=== PATIENT | female | born 1970 | race Caucasian/White ===

== ENCOUNTER → 2021-01-23 | Outpatient (CLI) | payer OTHER ==
[~2021-01-23] VITALS: Ht 157.5 cm; Wt 85.2 kg
[~2021-01-23] MED LIST: ALDACTONE50 MG PO; AMBIEN 5MG TABLE5 MG PO; BUSPAR10 MG PO; ENULOSE10 GM/15 M PO; LASIX 20MG TABL20 MG PO; LASIX 40MG TABL40 MG PO; PROTONIX 40MG T40 MG PO; SYNTHROID 0.10.15 MG PO; SYNTHROID0.137 MG PO; XIFAXAN550 MG PO; ZYRTEC ALLERGY10 MG PO
[2021-01-23 11:58] VITALS: BP 136/72; PULSE 85
[2021-01-23 13:05] VITALS: BP 116/69; PULSE 80
== END ==
LOC: COL.RAD 11:32
DX: K70.31 Alcoholic cirrhosis of liver with ascites (principal)
CPT/HCPCS: 19804

== ENCOUNTER 2021-01-31 08:53 | Outpatient (RCR) | payer OTHER ==
[~2021-01-31] VITALS: Ht 157.5 cm; Wt 91.0 kg
[~2021-01-31 08:53] MED LIST changes: -AMBIEN 5MG TABLE5 MG PO; -LASIX 20MG TABL20 MG PO
[2021-01-31 10:35] VITALS: BP 114/66; PULSE 83
[2021-01-31 13:22] VITALS: BP 104/31; PULSE 77
== END 2021-01-31 16:16 | disposition home or self-care (01) ==
LOC: COL.RAD 08:53 → EDSTATUS 09:45 → COL.RAD 16:16
DX: K70.31 Alcoholic cirrhosis of liver with ascites (principal)
CPT/HCPCS: P9047

== ENCOUNTER 2021-02-07 14:40 | Emergency (ER) | payer OTHER ==
[~2021-02-07] VITALS: Ht 157.5 cm; Wt 88.6 kg
[2021-02-07 14:52] VITALS: TEMP 98.1
[2021-02-07 15:16] LABS: COLLECTION METHOD CLEAN CATCH
[2021-02-07 15:22] LABS: MUCOUS Present /lpf; PH 5 (5-8); URINE APPEARANCE Clear; URINE BACTERIA Rare /hpf; URINE BILIRUBIN Negative (NEGATIVE); URINE BLOOD Negative (NEGATIVE); URINE COLOR Amber; URINE GLUCOSE Negative (NEGATIVE); URINE KETONE Negative (NEGATIVE); URINE LEUKOCYTE ESTERASE Negative (NEGATIVE); URINE NITRATE Negative (NEGATIVE); URINE PROTEIN(semi-quant) Negative (NEGATIVE); URINE RBC None Seen /hpf; URINE UROBILINOGEN >=4.0 mg/dL (NEGATIVE)
[2021-02-07 15:33] LABS: BASO # 0.1 (0.0-0.2); BASO % 0.7 % (0.0-2.0); EOS # 0.2 (0.0-0.7); EOS % 2.8 % (0-4.0); GRAN % 73.1 % (42.2-75.2); HEMOGLOBIN 11.4 g/dl (12.5-16.0); LYMPH # 0.6 (1.2-3.4); LYMPH % 8.9 % (20.0-51.0); MEAN CELL VOLUME 102 fl (80.0-100.0); MEAN CORPUSCULAR HEMOGLOBIN 35 pg (27.0-31.0); MEAN CORPUSCULAR HGB CONC 34 g/dl (33.0-37.0); MEAN PLATELET VOLUME 12.2 fl (7.4-10.4); MONO # 0.9 (0.1-0.6); MONO % 13.2 % (1.7-9.3); PLATELET COUNT 63 K/mm3 (130-400); RED BLOOD COUNT 3.26 M/mm3 (4.10-5.30)
[2021-02-07 15:34] LABS: HEMATOCRIT 33.3 % (37.0-47.0)
[2021-02-07 15:44] LABS: ALBUMIN 2.5 gm/dL (3.5-5.0); BILIRUBIN,TOTAL 2.7 mg/dL (0.0-1.0); CALCIUM 7.8 mg/dL (8.4-10.2); CREATININE, serum 1.24 (0.52-1.25); POTASSIUM 4.2 mmol/L (3.4-5.0); TOTAL PROTEIN 5.6 gm/dL (6.4-8.2)
[2021-02-07 16:20] VITALS: BP 113/75; PULSE 82
== END 2021-02-07 16:20 | disposition home or self-care (01) ==
LOC: COL.ER 14:40
PROVIDERS: Physician Assistant
DX: K72.90 Hepatic failure, unspecified without coma (principal); E87.1 Hypo-osmolality and hyponatremia; D69.6 Thrombocytopenia, unspecified; Z87.891 Personal history of nicotine dependence

== ENCOUNTER → 2021-02-13 | Outpatient (CLI) | payer OTHER ==
[~2021-02-13] VITALS: Ht 157.5 cm; Wt 100.3 kg
[~2021-02-13] MED LIST changes: +AMBIEN 5MG TABLE5 MG PO; +LASIX 20MG TABL20 MG PO
[2021-02-13 14:30] VITALS: BP 107/71; PULSE 80
[2021-02-13 15:30] VITALS: BP 117/77; PULSE 77
== END ==
LOC: COL.RAD 11:43
DX: K70.31 Alcoholic cirrhosis of liver with ascites (principal)
CPT/HCPCS: P9047

== ENCOUNTER → 2021-02-20 | Outpatient (CLI) | payer OTHER ==
[~2021-02-20] VITALS: Ht 157.5 cm; Wt 96.7 kg
[2021-02-20 11:54] VITALS: BP 120/88; PULSE 93
[2021-02-20 14:17] VITALS: BP 109/62; PULSE 84
--- NOTE | 2021-02-20 14:35 | NUR ---
CLARIFIED WITH [facility] PHARMACIST REGARDING RATE. OK TO RUN AT 2MG/MIN.
--- NOTE | 2021-02-20 16:15 | NUR ---
ALBUMIN COMPLETED. IV DC'D. PT WHEELED OUT FOR DISCHARGE AND MET BY .
== END ==
LOC: COL.RAD 11:27
DX: K70.31 Alcoholic cirrhosis of liver with ascites (principal)
CPT/HCPCS: P9047

== ENCOUNTER 2021-02-27 11:24 | Outpatient (CLI) | payer OTHER ==
[~2021-02-27 11:24] MED LIST changes: -AMBIEN 5MG TABLE5 MG PO; -LASIX 20MG TABL20 MG PO
[2021-02-27 13:42] VITALS: BP 108/53; PULSE 80
--- NOTE | 2021-02-27 14:45 | NUR ---
INT DC'd with catheter intact. Pt assisted out by wheelchair to 's car.
== END 2021-02-27 16:59 | disposition home or self-care (01) ==
LOC: COL.RAD 11:24
DX: K70.31 Alcoholic cirrhosis of liver with ascites (principal)
CPT/HCPCS: P9047

== ENCOUNTER 2021-03-06 11:38 | Outpatient (CLI) | payer OTHER ==
[~2021-03-06] VITALS: Ht 157.5 cm; Wt 93.7 kg
[2021-03-06 11:58] VITALS: BP 122/69; PULSE 85
[2021-03-06 14:28] LABS: PERITONEAL -POLYMORPHONUCLEAR 21.6 % (0-25); PERITONEAL FLUID RBC 1000 /mm3 (0-0)
[2021-03-06 14:46] VITALS: BP 113/76; PULSE 77
[2021-03-06 15:00] VITALS: BP 134/82; PULSE 71; TEMP 97.9
== END 2021-03-06 16:06 | disposition home or self-care (01) ==
LOC: COL.RAD 11:38
PROVIDERS: Student in an Organized Health Care Education/Training Program
DX: K70.31 Alcoholic cirrhosis of liver with ascites (principal)
CPT/HCPCS: P9047

== ENCOUNTER 2021-03-13 11:34 | Outpatient (CLI) | payer OTHER ==
[~2021-03-13] VITALS: Ht 157.5 cm; Wt 86.8 kg
[2021-03-13 12:25] VITALS: BP 104/68; PULSE 80; TEMP 98.5
--- NOTE | 2021-03-13 14:02 | NUR ---
Pt returned from procedure.
[2021-03-13 14:41] VITALS: BP 107/72; PULSE 79; TEMP 98.7
[2021-03-13 14:43] VITALS: BP 107/72; PULSE 79
== END 2021-03-13 16:31 ==
LOC: COL.RAD 11:34
DX: K70.31 Alcoholic cirrhosis of liver with ascites (principal)
CPT/HCPCS: P9047

== ENCOUNTER 2021-03-20 11:32 | Outpatient (CLI) | payer OTHER ==
[~2021-03-20] VITALS: Ht 157.5 cm; Wt 85.5 kg
[2021-03-20 11:52] VITALS: BP 128/67; PULSE 78; TEMP 98.3
[2021-03-20 13:30] VITALS: BP 107/59; PULSE 81
[2021-03-20 14:00] VITALS: BP 107/59; PULSE 81; TEMP 98.3
[2021-03-20 14:08] LABS: PERITONEAL -POLYMORPHONUCLEAR 24.6 % (0-25); PERITONEAL FLUID RBC 4000 /mm3 (0-0)
== END 2021-03-20 15:30 | disposition home or self-care (01) ==
LOC: COL.RAD 11:32
PROVIDERS: Student in an Organized Health Care Education/Training Program
DX: K70.31 Alcoholic cirrhosis of liver with ascites (principal)
CPT/HCPCS: P9047

== ENCOUNTER 2021-03-27 08:31 | Outpatient (CLI) | payer OTHER ==
[~2021-03-27] VITALS: Ht 157.5 cm; Wt 88.3 kg
[2021-03-27 08:49] VITALS: BP 114/72; PULSE 82; TEMP 97.9
[2021-03-27 10:30] VITALS: BP 101/52; PULSE 102; TEMP 97.9
[2021-03-27 10:41] LABS: PERITONEAL -POLYMORPHONUCLEAR 24.7 % (0-25); PERITONEAL FLUID RBC 1000 /mm3 (0-0)
== END 2021-03-27 11:45 | disposition home or self-care (01) ==
LOC: COL.RAD 08:31
PROVIDERS: Student in an Organized Health Care Education/Training Program
DX: K70.31 Alcoholic cirrhosis of liver with ascites (principal)
CPT/HCPCS: P9047

== ENCOUNTER 2021-04-03 11:32 | Outpatient (CLI) | payer OTHER ==
[2021-04-03 13:58] LABS: PERITONEAL FLUID RBC 1000 /mm3 (0-0)
[2021-04-03 15:26] VITALS: BP 106/60; PULSE 85
== END 2021-04-03 16:28 ==
LOC: COL.RAD 11:32
PROVIDERS: Student in an Organized Health Care Education/Training Program
DX: K70.31 Alcoholic cirrhosis of liver with ascites (principal)
CPT/HCPCS: P9047

== ENCOUNTER 2021-04-17 11:15 | Outpatient (CLI) | payer OTHER ==
[~2021-04-17] VITALS: Ht 157.5 cm; Wt 88.2 kg
[2021-04-17 11:40] VITALS: BP 111/60; PULSE 52; TEMP 97.9
[2021-04-17 14:09] VITALS: BP 107/70; PULSE 77
[2021-04-17 14:26] LABS: PERITONEAL -POLYMORPHONUCLEAR 23.5 % (0-25); PERITONEAL FLUID RBC 1000 /mm3 (0-0)
--- NOTE | 2021-04-17 16:11 | NUR ---
Pt ambulates out from dept with steady gait to meet at entrance. She refuses assistance out with wheelchair. INT was DC'd with catheter intact prior to discharge.
== END 2021-04-17 16:11 | disposition home or self-care (01) ==
LOC: COL.RAD 11:15
PROVIDERS: Student in an Organized Health Care Education/Training Program
DX: K70.31 Alcoholic cirrhosis of liver with ascites (principal)
CPT/HCPCS: P9047

== ENCOUNTER 2021-04-24 12:28 | Outpatient (CLI) | payer OTHER ==
[~2021-04-24] VITALS: Ht 157.5 cm; Wt 85.9 kg
[2021-04-24 12:42] VITALS: BP 121/74; PULSE 88; TEMP 98.5
[2021-04-24 14:02] VITALS: BP 111/72; PULSE 77
--- NOTE | 2021-04-24 14:20 | NUR ---
Message left with GI office per pt's request. She states she would like to receive albumin infusion today, although per current orders infusion not needed due to amount of fluid removed during paracentesis procedure.
[2021-04-24 14:41] LABS: PERITONEAL -POLYMORPHONUCLEAR 19.3 % (0-25); PERITONEAL FLUID RBC 5000 /mm3 (0-0)
--- NOTE | 2021-04-24 16:05 | NUR ---
INT DC'd with catheter intact. Pt states she would like to ambulate out and refuses wheelchair ride out. She tolerated infusion without issue.
== END 2021-04-24 16:33 | disposition home or self-care (01) ==
LOC: COL.RAD 12:28
PROVIDERS: Student in an Organized Health Care Education/Training Program
DX: K70.31 Alcoholic cirrhosis of liver with ascites (principal)
CPT/HCPCS: P9047

== ENCOUNTER 2021-05-01 11:28 | Outpatient (CLI) | payer OTHER ==
[~2021-05-01] VITALS: Ht 157.5 cm; Wt 88.5 kg
[2021-05-01 11:43] VITALS: BP 119/77; PULSE 80; TEMP 98.3
[2021-05-01 14:11] LABS: PERITONEAL -POLYMORPHONUCLEAR 19.3 % (0-25); PERITONEAL FLUID RBC 2000 /mm3 (0-0)
[2021-05-01 14:16] VITALS: BP 103/47; PULSE 78
== END 2021-05-01 15:43 ==
LOC: COL.RAD 11:28
PROVIDERS: Student in an Organized Health Care Education/Training Program
DX: K70.31 Alcoholic cirrhosis of liver with ascites (principal)
CPT/HCPCS: P9047

== ENCOUNTER 2021-05-08 11:45 | Outpatient (CLI) | payer OTHER ==
[~2021-05-08] VITALS: Ht 157.5 cm; Wt 89.4 kg
[2021-05-08 12:00] VITALS: BP 97/56; PULSE 80; TEMP 98.1
[2021-05-08 13:50] VITALS: BP 117/76; PULSE 69; TEMP 98.5
[2021-05-08 14:23] LABS: PERITONEAL -POLYMORPHONUCLEAR 27.5 % (0-25); PERITONEAL FLUID RBC 2000 /mm3 (0-0)
== END 2021-05-08 14:49 ==
LOC: COL.RAD 11:45
PROVIDERS: Student in an Organized Health Care Education/Training Program
DX: K70.31 Alcoholic cirrhosis of liver with ascites (principal)
CPT/HCPCS: P9047

== ENCOUNTER 2021-05-15 08:27 | Outpatient (CLI) | payer OTHER ==
[2021-05-15 11:13] LABS: PERITONEAL -POLYMORPHONUCLEAR 26.2 % (0-25)
[2021-05-15 11:29] LABS: PERITONEAL FLUID RBC 7000 /mm3 (0-0)
[2021-05-15 12:35] VITALS: BP 105/68; PULSE 88
[2021-05-15 14:57] LABS: CREATININE, serum 1.32 mg/dL (0.57-1.11)
== END 2021-05-15 14:31 | disposition home or self-care (01) ==
LOC: COL.RAD 08:27
PROVIDERS: Student in an Organized Health Care Education/Training Program
DX: K70.31 Alcoholic cirrhosis of liver with ascites (principal)
CPT/HCPCS: P9047

== ENCOUNTER 2021-05-29 08:31 | Outpatient (CLI) | payer OTHER ==
[~2021-05-29] VITALS: Ht 157.5 cm; Wt 95.2 kg
[2021-05-29 08:48] VITALS: BP 127/88; PULSE 89; TEMP 97.9
[2021-05-29 10:48] LABS: PERITONEAL -POLYMORPHONUCLEAR 18.3 % (0-25)
[2021-05-29 11:20] VITALS: BP 113/73; PULSE 87; TEMP 97.9
== END 2021-05-29 17:06 ==
LOC: COL.RAD 08:31 → EUO 08:31 → COL.RAD 09:00
PROVIDERS: Student in an Organized Health Care Education/Training Program
DX: K70.31 Alcoholic cirrhosis of liver with ascites (principal)
CPT/HCPCS: P9047

== ENCOUNTER 2021-06-05 08:34 | Outpatient (CLI) | payer OTHER ==
[~2021-06-05] VITALS: Ht 157.5 cm; Wt 87.3 kg
[2021-06-05 09:04] VITALS: BP 128/82; PULSE 84; TEMP 97.5
[2021-06-05 11:20] VITALS: BP 127/79; PULSE 85; TEMP 98.2
== END 2021-06-05 13:45 | disposition home health service (06) ==
LOC: COL.RAD 08:34
PROVIDERS: Student in an Organized Health Care Education/Training Program
DX: K70.31 Alcoholic cirrhosis of liver with ascites (principal)
CPT/HCPCS: P9047

== ENCOUNTER 2021-06-12 08:28 | Outpatient (CLI) | payer OTHER ==
[~2021-06-12] VITALS: Ht 157.5 cm; Wt 95.8 kg
[2021-06-12 09:05] VITALS: BP 141/74; PULSE 87; TEMP 97.8
[2021-06-12 11:12] VITALS: BP 114/65; PULSE 82; TEMP 98.2
[2021-06-12 11:35] LABS: PERITONEAL -POLYMORPHONUCLEAR 15.9 % (0-25)
== END 2021-06-12 13:40 ==
LOC: COL.RAD 08:28
PROVIDERS: Student in an Organized Health Care Education/Training Program
DX: R18.8 Other ascites (principal)
CPT/HCPCS: P9047

== ENCOUNTER 2021-06-19 08:27 | Outpatient (CLI) | payer OTHER ==
[~2021-06-19] VITALS: Ht 157.5 cm; Wt 94.8 kg
[2021-06-19 08:50] VITALS: BP 130/83; PULSE 81; TEMP 98.4
[2021-06-19] MEDS ORDERED: AMBIEN 5MG TABLE5 MG PO (08:56)
[2021-06-19 11:10] LABS: PERITONEAL -POLYMORPHONUCLEAR 9.2 % (0-25)
--- NOTE | 2021-06-19 13:45 | NUR ---
INT DC'd with catheter intact. Pt assisted out to 's car by wheelchair.
== END 2021-06-19 16:35 | disposition home or self-care (01) ==
LOC: COL.RAD 08:27
PROVIDERS: Student in an Organized Health Care Education/Training Program
DX: K70.31 Alcoholic cirrhosis of liver with ascites (principal)
CPT/HCPCS: P9047

== ENCOUNTER 2021-06-26 08:36 | Outpatient (CLI) | payer OTHER ==
[~2021-06-26] VITALS: Ht 157.5 cm; Wt 91.8 kg
[~2021-06-26 08:36] MED LIST changes: +AMBIEN 5MG TABLE5 MG PO
[2021-06-26] MEDS ORDERED: ALDACTONE50 MG PO (08:51)
[2021-06-26] MEDS ORDERED: LASIX 20MG TABL20 MG PO (08:52)
[2021-06-26 08:54] VITALS: BP 113/57; PULSE 84
[2021-06-26 10:56] LABS: PERITONEAL -POLYMORPHONUCLEAR 15.1 % (0-25)
== END 2021-06-26 13:25 | disposition home or self-care (01) ==
LOC: COL.RAD 08:36
PROVIDERS: Student in an Organized Health Care Education/Training Program
DX: K70.31 Alcoholic cirrhosis of liver with ascites (principal)
CPT/HCPCS: P9047

== ENCOUNTER 2021-07-03 08:29 | Outpatient (CLI) | payer OTHER ==
[~2021-07-03] VITALS: Ht 157.5 cm; Wt 90.4 kg
[~2021-07-03 08:29] MED LIST changes: +LASIX 20MG TABL20 MG PO
[2021-07-03 08:51] VITALS: BP 112/61; PULSE 72; TEMP 98
[2021-07-03 10:44] LABS: PERITONEAL -POLYMORPHONUCLEAR 11.2 % (0-25)
--- NOTE | 2021-07-03 10:45 | NUR ---
Patient arrived from procedure.
[2021-07-03 11:00] VITALS: BP 102/68; PULSE 71; TEMP 98
[2021-07-03 22:31] LABS: Fluid Type protein (())
== END 2021-07-03 14:22 ==
LOC: COL.RAD 08:29
PROVIDERS: Student in an Organized Health Care Education/Training Program
DX: K70.31 Alcoholic cirrhosis of liver with ascites (principal)
CPT/HCPCS: P9047

== ENCOUNTER 2021-07-09 08:42 | Outpatient (CLI) | payer OTHER ==
[~2021-07-09] VITALS: Ht 157.5 cm; Wt 86.9 kg
[2021-07-09 09:12] VITALS: BP 117/75; PULSE 77; TEMP 97.9
[2021-07-09 10:51] LABS: PERITONEAL -POLYMORPHONUCLEAR 8.9 % (0-25)
[2021-07-09 11:12] VITALS: BP 116/74; PULSE 77; TEMP 98.6
--- NOTE | 2021-07-09 12:10 | NUR ---
Report to Gideon Brewster.
== END 2021-07-09 15:00 ==
LOC: COL.RAD 08:42
PROVIDERS: Student in an Organized Health Care Education/Training Program
DX: K70.31 Alcoholic cirrhosis of liver with ascites (principal)
CPT/HCPCS: P9047

== ENCOUNTER → 2021-07-17 | Outpatient (CLI) | payer OTHER ==
[~2021-07-17] VITALS: Ht 157.5 cm; Wt 89.7 kg
[2021-07-17 08:50] VITALS: BP 120/73; PULSE 77; TEMP 97.8
[2021-07-17 10:12] VITALS: BP 105/65; PULSE 72
[2021-07-17 10:33] LABS: PERITONEAL -POLYMORPHONUCLEAR 16.2 % (0-25)
[2021-07-18 11:27] LABS: Fluid Type Peritoneal
== END ==
LOC: COL.RAD 08:36
PROVIDERS: Student in an Organized Health Care Education/Training Program
DX: K70.31 Alcoholic cirrhosis of liver with ascites (principal)
CPT/HCPCS: P9047

== ENCOUNTER 2021-07-24 08:20 | Outpatient (CLI) | payer OTHER ==
[~2021-07-24] VITALS: Ht 157.5 cm; Wt 88.9 kg
[2021-07-24 08:36] VITALS: BP 122/79; PULSE 85; TEMP 97.9
[2021-07-24 10:37] VITALS: BP 115/73; PULSE 74
== END 2021-07-24 13:19 ==
LOC: COL.RAD 08:20
DX: K70.31 Alcoholic cirrhosis of liver with ascites (principal)
CPT/HCPCS: P9047

== ENCOUNTER 2021-07-31 08:47 | Outpatient (CLI) | payer OTHER ==
[~2021-07-31] VITALS: Ht 157.5 cm; Wt 89.6 kg
[2021-07-31 09:03] VITALS: BP 124/71; PULSE 82; TEMP 98.2
[2021-07-31 11:18] VITALS: BP 109/70; PULSE 82
== END 2021-07-31 14:45 | disposition home or self-care (01) ==
LOC: COL.RAD 08:47
DX: K70.31 Alcoholic cirrhosis of liver with ascites (principal)
CPT/HCPCS: P9047

== ENCOUNTER 2021-08-07 08:45 | Outpatient (CLI) | payer OTHER ==
[~2021-08-07] VITALS: Ht 157.5 cm; Wt 86.4 kg
[2021-08-07 08:58] VITALS: BP 123/76; PULSE 81; TEMP 97.9
[2021-08-07 10:29] VITALS: BP 107/70; PULSE 79; TEMP 97.7
== END 2021-08-07 13:10 | disposition home or self-care (01) ==
LOC: COL.RAD 08:45
DX: K70.31 Alcoholic cirrhosis of liver with ascites (principal)
CPT/HCPCS: P9047

== ENCOUNTER 2021-08-14 08:34 | Outpatient (CLI) | payer OTHER ==
[~2021-08-14] VITALS: Ht 157.5 cm; Wt 85.3 kg
[2021-08-14 09:02] VITALS: BP 117/73; PULSE 77; TEMP 98.3
== END 2021-08-14 17:26 | disposition home or self-care (01) ==
LOC: COL.RAD 08:34
DX: K70.31 Alcoholic cirrhosis of liver with ascites (principal)
CPT/HCPCS: P9047

== ENCOUNTER 2021-08-21 06:20 | Outpatient (CLI) | payer OTHER ==
[~2021-08-21] VITALS: Ht 157.5 cm; Wt 84.7 kg
[2021-08-21 06:38] VITALS: BP 112/78; PULSE 65; TEMP 97.7
[2021-08-21 08:35] VITALS: BP 113/73; PULSE 70
[2021-08-21 09:14] LABS: PERITONEAL -POLYMORPHONUCLEAR 6.3 % (0-25)
--- NOTE | 2021-08-21 11:00 | NUR ---
INT was DC'd with catheter intact. Pt assisted out to 's car by wheelchair.
== END 2021-08-21 11:00 | disposition home or self-care (01) ==
LOC: COL.RAD 06:20
PROVIDERS: Physician Assistant
DX: K70.31 Alcoholic cirrhosis of liver with ascites (principal)
CPT/HCPCS: P9047

== ENCOUNTER 2021-08-28 08:40 | Outpatient (CLI) | payer OTHER ==
[~2021-08-28] VITALS: Ht 157.5 cm; Wt 83.4 kg
[2021-08-28 09:04] VITALS: BP 101/63; PULSE 68; TEMP 97.8
--- NOTE | 2021-08-28 09:45 | NUR ---
pt doesnt have enough fluid to drain. Pt INT removed 2x2 and coban to site. Pt out to front lobby to await ride home. Pt to return on wednesday for para.
== END 2021-09-02 11:55 ==
LOC: COL.RAD 08:40
DX: K70.31 Alcoholic cirrhosis of liver with ascites (principal)

== ENCOUNTER 2021-09-04 08:23 | Outpatient (CLI) | payer OTHER ==
[2021-09-04 08:48] VITALS: BP 116/76; PULSE 77; TEMP 97.9
[2021-09-04 11:26] VITALS: BP 119/76; PULSE 76
== END 2021-09-04 18:32 | disposition home or self-care (01) ==
LOC: COL.RAD 08:23
DX: K70.31 Alcoholic cirrhosis of liver with ascites (principal)
CPT/HCPCS: P9047

== ENCOUNTER 2021-09-11 08:31 | Outpatient (CLI) | payer OTHER ==
[~2021-09-11] VITALS: Ht 157.5 cm; Wt 84.9 kg
[2021-09-11 09:04] VITALS: BP 118/77; PULSE 71; TEMP 97.9
[2021-09-11 10:57] VITALS: BP 118/77; PULSE 66
--- NOTE | 2021-09-11 10:57 | NUR ---
Transferred from Radiology for Albumin. IV to left FA placed in Radiology
[2021-09-11 13:33] VITALS: BP 118/77; PULSE 66; TEMP 97.9
== END 2021-09-11 13:25 | disposition home or self-care (01) ==
LOC: COL.RAD 08:31
DX: K70.31 Alcoholic cirrhosis of liver with ascites (principal)
CPT/HCPCS: P9047

== ENCOUNTER 2021-09-18 08:23 | Outpatient (CLI) | payer OTHER ==
[~2021-09-18] VITALS: Ht 157.5 cm; Wt 83.4 kg
[2021-09-18 08:43] VITALS: BP 115/75; PULSE 76; TEMP 97.7
[2021-09-18 10:25] LABS: PERITONEAL -POLYMORPHONUCLEAR 9.9 % (0-25)
[2021-09-25] MEDS ORDERED: ZOFRAN 4MG T4 MG/TAB PO (10:12)
== END 2021-09-18 12:50 | disposition home or self-care (01) ==
LOC: COL.RAD 08:23
PROVIDERS: Physician Assistant
DX: K70.31 Alcoholic cirrhosis of liver with ascites (principal)
CPT/HCPCS: P9047

== ENCOUNTER 2021-10-02 08:36 | Outpatient (CLI) | payer OTHER ==
[~2021-10-02] VITALS: Ht 157.5 cm; Wt 85.8 kg
[~2021-10-02 08:36] MED LIST changes: +ZOFRAN 4MG T4 MG/TAB PO
[2021-10-02 09:05] VITALS: BP 127/83; PULSE 73; TEMP 97.6
[2021-10-02 11:07] VITALS: BP 118/74; PULSE 80; TEMP 97.4
== END 2021-10-02 15:27 ==
LOC: COL.RAD 08:36
DX: K70.31 Alcoholic cirrhosis of liver with ascites (principal)
CPT/HCPCS: P9047

== ENCOUNTER 2021-10-09 08:25 | Outpatient (CLI) | payer OTHER ==
[~2021-10-09] VITALS: Ht 157.5 cm; Wt 85.7 kg
[2021-10-09 11:00] VITALS: BP 112/72; PULSE 79; TEMP 97.8
== END 2021-10-09 13:58 ==
LOC: COL.RAD 08:25
DX: K70.31 Alcoholic cirrhosis of liver with ascites (principal)
CPT/HCPCS: P9047

== ENCOUNTER 2021-10-16 08:27 | Outpatient (CLI) | payer OTHER ==
[~2021-10-16] VITALS: Ht 157.5 cm; Wt 86.3 kg
[2021-10-16] MEDS ORDERED: MELATONIN5 M1 PO (09:08)
[2021-10-16] MEDS ORDERED: BENADRYL25 M2 PO (09:08)
[2021-10-16 09:12] VITALS: BP 129/78; PULSE 70; TEMP 97.9
[2021-10-16 10:42] LABS: PERITONEAL -POLYMORPHONUCLEAR 8.4 % (0-25)
== END 2021-10-16 15:31 | disposition home or self-care (01) ==
LOC: COL.RAD 08:27
PROVIDERS: Physician Assistant
DX: K70.31 Alcoholic cirrhosis of liver with ascites (principal)
CPT/HCPCS: P9047

== ENCOUNTER 2021-10-17 08:48 | Day surgery (SDC) | payer OTHER ==
[~2021-10-17] VITALS: Ht 157.5 cm; Wt 79.6 kg
[~2021-10-17 08:48] MED LIST changes: +BENADRYL25 M2 PO; +MELATONIN5 M1 PO
[2021-10-17 09:53] VITALS: BP 121/59; PULSE 73; TEMP 97.6
[2021-10-17 11:15] VITALS: BP 125/63; PULSE 77; TEMP 98.1
[2021-10-17 11:30] VITALS: BP 124/70; PULSE 77; TEMP 98.1
[2021-10-17 11:39] VITALS: PULSE 75
== END 2021-10-17 12:54 | disposition home or self-care (01) ==
LOC: SDCO 08:48
DX: K92.0 Hematemesis (principal); K74.60 Unspecified cirrhosis of liver; R18.8 Other ascites; Z98.84 Bariatric surgery status; Z79.899 Other long term (current) drug therapy
CPT/HCPCS: J2704; J7030

== ENCOUNTER 2021-10-23 08:36 | Outpatient (CLI) | payer OTHER ==
[~2021-10-23] VITALS: Ht 157.5 cm; Wt 84.3 kg
[2021-10-23 08:54] VITALS: BP 123/78; PULSE 71; TEMP 98
[2021-10-23 10:21] VITALS: BP 119/76; PULSE 74
--- NOTE | 2021-10-23 12:30 | NUR ---
INT DC'd with catheter intact. Pt assisted out by wheelchair to 's car.
== END 2021-10-23 12:30 | disposition home or self-care (01) ==
LOC: COL.RAD 08:36
DX: R18.8 Other ascites (principal)
CPT/HCPCS: P9047

== ENCOUNTER 2021-10-30 08:33 | Outpatient (CLI) | payer OTHER ==
[~2021-10-30] VITALS: Ht 157.5 cm; Wt 82.6 kg
[2021-10-30 09:00] VITALS: BP 124/78; PULSE 76; TEMP 98
[2021-10-30 10:45] VITALS: BP 115/74; PULSE 77
[2021-10-30 10:48] VITALS: BP 115/70; PULSE 77; TEMP 98.3
== END 2021-10-30 16:09 | disposition home or self-care (01) ==
LOC: COL.RAD 08:33
DX: K70.31 Alcoholic cirrhosis of liver with ascites (principal)
CPT/HCPCS: P9047

== ENCOUNTER 2021-11-06 08:28 | Outpatient (CLI) | payer OTHER ==
[~2021-11-06] VITALS: Ht 157.5 cm; Wt 83.0 kg
[2021-11-06 08:51] VITALS: BP 127/76; PULSE 79; TEMP 97.7
[2021-11-06 10:25] VITALS: BP 120/71; PULSE 78
== END 2021-11-06 12:50 | disposition home or self-care (01) ==
LOC: COL.RAD 08:28
DX: K70.31 Alcoholic cirrhosis of liver with ascites (principal)
CPT/HCPCS: P9047

== ENCOUNTER 2021-11-20 08:25 | Outpatient (CLI) | payer OTHER ==
[~2021-11-20] VITALS: Ht 157.5 cm; Wt 85.2 kg
[2021-11-20 08:52] VITALS: BP 124/77; PULSE 81; TEMP 97.4
[2021-11-20 10:16] VITALS: BP 123/54; PULSE 80; TEMP 98
[2021-11-20 10:43] LABS: PERITONEAL -POLYMORPHONUCLEAR 7.9 % (0-25)
== END 2021-11-20 13:10 ==
LOC: COL.RAD 08:25
PROVIDERS: Student in an Organized Health Care Education/Training Program
DX: K70.31 Alcoholic cirrhosis of liver with ascites (principal)
CPT/HCPCS: P9047

== ENCOUNTER 2021-11-27 08:53 | Outpatient (CLI) | payer OTHER ==
[~2021-11-27] VITALS: Ht 157.5 cm; Wt 85.4 kg
[2021-11-27] MEDS ORDERED: ZOFRAN 4MG T4 MG/TAB PO (09:01)
[2021-11-27] MEDS ORDERED: DESYREL 50MG50 MG PO (09:10)
[2021-11-27 09:17] VITALS: BP 125/73; PULSE 72; TEMP 97.5
[2021-11-27 13:43] VITALS: BP 115/61; PULSE 79
== END 2021-11-27 14:55 ==
LOC: COL.RAD 08:53
DX: K70.31 Alcoholic cirrhosis of liver with ascites (principal)
CPT/HCPCS: P9047

== ENCOUNTER 2021-12-11 08:27 | Outpatient (CLI) | payer OTHER ==
[~2021-12-11] VITALS: Ht 157.5 cm; Wt 83.0 kg
[~2021-12-11 08:27] MED LIST changes: +DESYREL 50MG50 MG PO
[2021-12-11 08:54] VITALS: BP 115/72; PULSE 71; TEMP 97.8
[2021-12-11] MEDS ORDERED: AMBIEN 10MG10 MG PO (08:54)
[2021-12-11 09:24] LABS: BASO % 0.3 % (0.0-2.0); EOS # 0.2 K/mm3 (0.0-0.7); GRAN # 2.5 K/mm3 (1.4-6.5); GRAN % 72.5 % (42.2-75.2); LYMPH # 0.3 K/mm3 (1.2-3.4); MEAN CELL VOLUME 103 fl (80.0-100.0); MEAN CORPUSCULAR HGB CONC 34 g/dl (33.0-37.0); MONO # 0.4 K/mm3 (0.1-0.6); MONO % 12.6 % (1.7-9.3); RED BLOOD COUNT 2.52 M/mm3 (4.10-5.30); REDCELL DISTRIBUTION WIDTH-CV 16.6 % (11.5-14.5)
[2021-12-11 09:26] LABS: INR 1.9 (0.8-3.0); PROTHROMBIN TIME 21.3 SECONDS (9.7-12.8)
[2021-12-11 09:30] LABS: HEMOGLOBIN 8.7 g/dl (12.5-16.0); MEAN CORPUSCULAR HEMOGLOBIN 35 pg (27-31)
[2021-12-11 09:37] LABS: ALBUMIN 3.8 gm/dL (3.5-5.0); CALCIUM 7.9 mg/dL (8.4-10.2); CREATININE, serum 2.21 mg/dL (0.57-1.11); PLATELET COUNT 35 K/mm3 (130-400); POTASSIUM 4.5 mmol/L (3.5-4.5); TOTAL PROTEIN 5.3 gm/dL (6.2-8.1)
[2021-12-11 10:48] VITALS: BP 105/65; PULSE 77
== END 2021-12-11 13:30 | disposition home or self-care (01) ==
LOC: COL.RAD 08:27
PROVIDERS: Student in an Organized Health Care Education/Training Program
DX: K70.31 Alcoholic cirrhosis of liver with ascites (principal)
CPT/HCPCS: P9047

== ENCOUNTER 2021-12-18 08:27 | Outpatient (CLI) | payer OTHER ==
[~2021-12-18] VITALS: Ht 157.5 cm; Wt 84.7 kg
[~2021-12-18 08:27] MED LIST changes: +AMBIEN 10MG10 MG PO
[2021-12-18 08:39] VITALS: BP 122/75; PULSE 76; TEMP 97.6
[2021-12-18 08:52] LABS: BASO % 0.8 % (0.0-2.0); EOS # 0.2 K/mm3 (0.0-0.7); EOS % 5.8 % (0.0-4.0); GRAN # 1.8 K/mm3 (1.4-6.5); GRAN % 67.8 % (42.2-75.2); LYMPH # 0.2 K/mm3 (1.2-3.4); LYMPH % 9.3 % (20.0-51.0); MEAN CELL VOLUME 106 fl (80.0-100.0); MEAN CORPUSCULAR HGB CONC 32 g/dl (33.0-37.0); MONO # 0.4 K/mm3 (0.1-0.6); MONO % 15.9 % (1.7-9.3); RED BLOOD COUNT 2.38 M/mm3 (4.10-5.30); REDCELL DISTRIBUTION WIDTH-CV 16.8 % (11.5-14.5)
[2021-12-18 08:58] LABS: HEMATOCRIT 25.1 % (37.0-47.0); HEMOGLOBIN 8.1 g/dl (12.5-16.0); MEAN CORPUSCULAR HEMOGLOBIN 34 pg (27-31)
[2021-12-18 09:02] LABS: PLATELET COUNT 23 K/mm3 (130-400)
--- NOTE | 2021-12-18 09:04 | NUR ---
PLATELET 23 TODAY AND 35 LAST WEEK. CALLED TO OUSMANE THE NURSE WITH [employer]. INSTRUCTED OUR LAB TO FAX RESULTS TO [facility] AND TO [facility]
[2021-12-18 09:05] LABS: PROTHROMBIN TIME 23.1 SECONDS (9.7-12.8)
[2021-12-18 09:11] LABS: ALBUMIN 3.6 gm/dL (3.5-5.0); BILIRUBIN,TOTAL 4.1 mg/dL (0.2-1.2); CALCIUM 7.6 mg/dL (8.4-10.2); CREATININE, serum 1.87 mg/dL (0.57-1.11); POTASSIUM 4.8 mmol/L (3.5-4.5); TOTAL PROTEIN 5.2 gm/dL (6.2-8.1)
[2021-12-18 10:42] VITALS: BP 108/63; PULSE 76
== END 2021-12-18 16:15 ==
LOC: COL.RAD 08:27
PROVIDERS: Internal Medicine Gastroenterology; Student in an Organized Health Care Education/Training Program
DX: K70.31 Alcoholic cirrhosis of liver with ascites (principal)
CPT/HCPCS: P9047

== ENCOUNTER 2021-12-25 08:27 | Outpatient (CLI) | payer OTHER ==
[~2021-12-25] VITALS: Ht 157.5 cm; Wt 86.2 kg
[2021-12-25 08:48] VITALS: BP 122/71; PULSE 69; TEMP 97.7
[2021-12-25 09:09] LABS: BASO % 1.1 % (0.0-2.0); EOS # 0.2 K/mm3 (0.0-0.7); EOS % 6.8 % (0.0-4.0); GRAN # 1.9 K/mm3 (1.4-6.5); GRAN % 68.5 % (42.2-75.2); LYMPH # 0.2 K/mm3 (1.2-3.4); LYMPH % 8.2 % (20.0-51.0); MEAN CELL VOLUME 103 fl (80.0-100.0); MEAN CORPUSCULAR HGB CONC 34 g/dl (33.0-37.0); MONO # 0.4 K/mm3 (0.1-0.6); RED BLOOD COUNT 2.34 M/mm3 (4.10-5.30); REDCELL DISTRIBUTION WIDTH-CV 16.7 % (11.5-14.5)
[2021-12-25 09:13] LABS: INR 1.9 (0.8-3.0); PROTHROMBIN TIME 21.5 SECONDS (9.7-12.8)
[2021-12-25 09:20] LABS: HEMATOCRIT 24.2 % (37.0-47.0); HEMOGLOBIN 8.1 g/dl (12.5-16.0); MEAN CORPUSCULAR HEMOGLOBIN 35 pg (27-31)
[2021-12-25 09:25] LABS: ALBUMIN 4.3 gm/dL (3.5-5.0); BILIRUBIN,TOTAL 4.4 mg/dL (0.2-1.2); CALCIUM 8.4 mg/dL (8.4-10.2); CREATININE, serum 2.14 mg/dL (0.57-1.11); POTASSIUM 4.7 mmol/L (3.5-4.5); TOTAL PROTEIN 6.1 gm/dL (6.2-8.1)
[2021-12-25 09:27] LABS: PLATELET COUNT 31 K/mm3 (130-400)
[2021-12-25 10:56] VITALS: BP 103/61; PULSE 75
== END 2021-12-25 15:57 ==
LOC: COL.RAD 08:27
PROVIDERS: Student in an Organized Health Care Education/Training Program
DX: K70.31 Alcoholic cirrhosis of liver with ascites (principal)
CPT/HCPCS: P9047

== ENCOUNTER 2022-01-01 08:47 | Outpatient (CLI) | payer OTHER ==
[~2022-01-01] VITALS: Ht 157.5 cm; Wt 80.5 kg
[2022-01-01 09:29] VITALS: BP 147/74; PULSE 79; TEMP 98.1
[2022-01-01 09:53] LABS: BASO % 0.6 % (0.0-2.0); EOS # 0.2 K/mm3 (0.0-0.7); EOS % 6.4 % (0.0-4.0); GRAN # 2.3 K/mm3 (1.4-6.5); GRAN % 70.3 % (42.2-75.2); LYMPH # 0.3 K/mm3 (1.2-3.4); LYMPH % 8.5 % (20.0-51.0); MEAN CELL VOLUME 107 fl (80.0-100.0); MEAN CORPUSCULAR HGB CONC 32 g/dl (33.0-37.0); MONO # 0.5 K/mm3 (0.1-0.6); MONO % 13.9 % (1.7-9.3); RED BLOOD COUNT 2.35 M/mm3 (4.10-5.30); REDCELL DISTRIBUTION WIDTH-CV 16.4 % (11.5-14.5)
[2022-01-01 09:54] LABS: HEMATOCRIT 25.1 % (37.0-47.0); HEMOGLOBIN 8.1 g/dl (12.5-16.0); MEAN CORPUSCULAR HEMOGLOBIN 34 pg (27-31)
[2022-01-01 09:57] LABS: PLATELET COUNT 26 K/mm3 (130-400)
[2022-01-01 10:04] LABS: INR 1.9 (0.8-3.0); PROTHROMBIN TIME 22.3 SECONDS (9.7-12.8)
[2022-01-01 10:06] LABS: ALBUMIN 4.1 gm/dL (3.5-5.0); BILIRUBIN,TOTAL 4.5 mg/dL (0.2-1.2); CALCIUM 8.7 mg/dL (8.4-10.2); CREATININE, serum 1.88 mg/dL (0.57-1.11); POTASSIUM 4.6 mmol/L (3.5-4.5); TOTAL PROTEIN 5.7 gm/dL (6.2-8.1)
[2022-01-01 11:20] VITALS: BP 128/71; PULSE 76; TEMP 98.4
[2022-01-01 11:38] LABS: PERITONEAL -POLYMORPHONUCLEAR 12.3 % (0-25)
--- NOTE | 2022-01-01 15:16 | NUR ---
Pt tolerated albumin administration without complication, IV site discontinued, pressure applied then dressed with gauze and coban. Pt escorted via wheelchair to exit and help into POV with driving.
== END 2022-01-01 14:30 | disposition home or self-care (01) ==
LOC: COL.RAD 08:47
PROVIDERS: Student in an Organized Health Care Education/Training Program
DX: K70.31 Alcoholic cirrhosis of liver with ascites (principal)
CPT/HCPCS: P9047

== ENCOUNTER 2022-01-08 09:00 | Outpatient (CLI) | payer OTHER ==
[2022-01-08 11:30] VITALS: BP 120/73; PULSE 86; TEMP 98.1
[2022-01-08 17:07] LABS: BASO % 0.3 % (0.0-2.0); EOS # 0.1 K/mm3 (0.0-0.7); EOS % 4.9 % (0.0-4.0); GRAN # 2.2 K/mm3 (1.4-6.5); LYMPH # 0.2 K/mm3 (1.2-3.4); MEAN CELL VOLUME 109 fl (80.0-100.0); MEAN CORPUSCULAR HGB CONC 32 g/dl (33.0-37.0); MONO # 0.3 K/mm3 (0.1-0.6); MONO % 10.5 % (1.7-9.3); PLATELET COUNT 50 K/mm3 (130-400); RED BLOOD COUNT 2.34 M/mm3 (4.10-5.30); REDCELL DISTRIBUTION WIDTH-CV 16.8 % (11.5-14.5)
[2022-01-08 17:08] LABS: HEMATOCRIT 25.4 % (37.0-47.0); HEMOGLOBIN 8.2 g/dl (12.5-16.0); MEAN CORPUSCULAR HEMOGLOBIN 35 pg (27-31)
[2022-01-08 17:09] LABS: INR 1.8 (0.8-3.0); PROTHROMBIN TIME 20.7 SECONDS (9.7-12.8)
[2022-01-08 17:22] LABS: ALBUMIN 3.9 gm/dL (3.5-5.0); BILIRUBIN,TOTAL 4.1 mg/dL (0.2-1.2); CALCIUM 8.1 mg/dL (8.4-10.2); CREATININE, serum 1.73 mg/dL (0.57-1.11); POTASSIUM 4.7 mmol/L (3.5-4.5); TOTAL PROTEIN 5.6 gm/dL (6.2-8.1)
== END 2022-01-08 16:40 ==
LOC: COL.RAD 09:00
PROVIDERS: Student in an Organized Health Care Education/Training Program
DX: K70.31 Alcoholic cirrhosis of liver with ascites (principal)
CPT/HCPCS: P9047

== ENCOUNTER 2022-01-15 08:35 | Outpatient (CLI) | payer OTHER ==
[~2022-01-15] VITALS: Ht 157.5 cm; Wt 86.5 kg
[2022-01-15 09:02] VITALS: BP 138/85; PULSE 86; TEMP 98
[2022-01-15 09:06] LABS: BASO % 0.7 % (0.0-2.0); EOS # 0.2 K/mm3 (0.0-0.7); EOS % 4.7 % (0.0-4.0); GRAN # 3.1 K/mm3 (1.4-6.5); GRAN % 76.8 % (42.2-75.2); LYMPH # 0.3 K/mm3 (1.2-3.4); LYMPH % 7.1 % (20.0-51.0); MEAN CELL VOLUME 106 fl (80.0-100.0); MEAN CORPUSCULAR HGB CONC 33 g/dl (33.0-37.0); MONO # 0.4 K/mm3 (0.1-0.6); MONO % 10.5 % (1.7-9.3); RED BLOOD COUNT 2.56 M/mm3 (4.10-5.30); REDCELL DISTRIBUTION WIDTH-CV 17.2 % (11.5-14.5)
[2022-01-15 09:23] LABS: HEMATOCRIT 27.2 % (37.0-47.0); HEMOGLOBIN 8.9 g/dl (12.5-16.0); MEAN CORPUSCULAR HEMOGLOBIN 35 pg (27-31)
[2022-01-15 09:25] LABS: PLATELET COUNT 40 K/mm3 (130-400)
[2022-01-15 09:28] LABS: ALBUMIN 4.3 gm/dL (3.5-5.0); BILIRUBIN,TOTAL 4.6 mg/dL (0.2-1.2); CALCIUM 8.8 mg/dL (8.4-10.2); CREATININE, serum 1.62 mg/dL (0.57-1.11); POTASSIUM 4.9 mmol/L (3.5-4.5)
[2022-01-15 09:30] LABS: INR 1.8 (0.8-3.0)
[2022-01-15 11:02] VITALS: BP 116/73; PULSE 82
[2022-01-15 11:12] LABS: PERITONEAL -POLYMORPHONUCLEAR 10.5 % (0-25)
== END 2022-01-15 13:30 ==
LOC: COL.RAD 08:35
PROVIDERS: Internal Medicine Gastroenterology; Student in an Organized Health Care Education/Training Program
DX: K70.31 Alcoholic cirrhosis of liver with ascites (principal)
CPT/HCPCS: P9047

== ENCOUNTER 2022-01-29 08:41 | Outpatient (CLI) | payer OTHER ==
[~2022-01-29] VITALS: Ht 157.5 cm; Wt 85.6 kg
[2022-01-29 09:26] VITALS: BP 125/71; PULSE 74; TEMP 98.1
[2022-01-29 10:11] LABS: MEAN CELL VOLUME 105 fl (80.0-100.0); MEAN CORPUSCULAR HGB CONC 33 g/dl (33.0-37.0); REDCELL DISTRIBUTION WIDTH-CV 15.7 % (11.5-14.5)
[2022-01-29 10:12] LABS: INR 1.8 (0.8-3.0); PROTHROMBIN TIME 20.9 SECONDS (9.7-12.8)
[2022-01-29 10:13] LABS: HEMATOCRIT 27.4 % (37.0-47.0); MEAN CORPUSCULAR HEMOGLOBIN 35 pg (27-31)
[2022-01-29 10:16] LABS: PLATELET COUNT 38 K/mm3 (130-400)
[2022-01-29 10:18] LABS: RETIC # 0.14 M/mm3 (0.02-0.16); RETIC % 5.2 % (0.5-3.52)
[2022-01-29 10:32] LABS: BILIRUBIN,TOTAL 4.5 mg/dL (0.2-1.2); CALCIUM 8.6 mg/dL (8.4-10.2); CREATININE, serum 1.69 mg/dL (0.57-1.11); POTASSIUM 4.8 mmol/L (3.5-4.5); TOTAL PROTEIN 5.9 gm/dL (6.2-8.1)
[2022-01-29 10:36] LABS: LACTATE DEHYDROGENASE 276 U/L (125-220)
[2022-01-29 10:51] LABS: BAND 6 % (0-10); EOSINOPHIL 7 % (0-4); LYMPHOCYTE 5 % (20.0-51.0); NEUTROPHILS 77 % (42.0-75.2); PLATELET ESTIMATE DECREASED (NORMAL)
[2022-01-29 10:57] LABS: HIV 1/2 Antibodies Non-Reactive; HIV-1p24 Antigen Non-Reactive
[2022-01-29 17:15] VITALS: BP 134/78; PULSE 72; TEMP 97.9
[2022-01-30 01:13] LABS: IMMUNOGLOBULIN A 282 mg/dL (65-421); IMMUNOGLOBULIN G 883 mg/dL (552-1631); IMMUNOGLOBULIN M, QUANTITATIVE 112 mg/dL (33-293)
[2022-01-30 01:35] LABS: HAPTOGLOBIN <8 mg/dL (35-250)
[2022-02-02 08:05] LABS: KAPPA FREE LIGHT CHAIN-SERUM 115.73 mg/L (()); LAMDA FREE LIGHT CHAIN SERUM 68.07 mg/L (())
[2022-02-02 10:35] LABS: .COPPER,S 0.35 mcg/mL (()); ZINC,S 0.49 mcg/mL (())
[2022-02-03 09:45] LABS: A/G RATIO (IEP) 1.92 (()); ALBUMIN (IEP) 3.9 g/dL (3.4-4.7); ALPHA 1 GLOBULINS (IEP) 0.1 g/dL (0.1-0.3); ALPHA 2 GLOBULINS (IEP) 0.5 g/dL (0.6-1.0); BETA GLOBULINS (IEP) 0.3 g/dL (0.7-1.2); GAMMA GLOBULINS (IEP) 1.2 g/dL (0.6-1.6)
[2022-02-03 13:08] LABS: CYTOMEGALOVIRUS DNA PCR Not Detected (()); CYTOMEGALOVIRUS DNA PCR LOG Not Detected (())
== END 2022-01-29 15:00 | disposition home or self-care (01) ==
LOC: COL.RAD 08:41
PROVIDERS: Internal Medicine Gastroenterology; Student in an Organized Health Care Education/Training Program
DX: K70.31 Alcoholic cirrhosis of liver with ascites (principal)
CPT/HCPCS: P9047

== ENCOUNTER 2022-02-05 08:17 | Outpatient (CLI) | payer OTHER ==
[2022-02-05 08:45] VITALS: BP 122/73; PULSE 71; TEMP 98
[2022-02-05] MEDS ORDERED: AMBIEN 5MG TABLE5 MG PO (08:45)
[2022-02-05 09:11] LABS: BASO % 0.5 % (0.0-2.0); EOS # 0.2 K/mm3 (0.0-0.7); EOS % 4.9 % (0.0-4.0); GRAN # 2.7 K/mm3 (1.4-6.5); GRAN % 73.9 % (42.2-75.2); LYMPH # 0.3 K/mm3 (1.2-3.4); LYMPH % 8.2 % (20.0-51.0); MEAN CELL VOLUME 103 fl (80.0-100.0); MEAN CORPUSCULAR HGB CONC 33 g/dl (33.0-37.0); MONO # 0.4 K/mm3 (0.1-0.6); RED BLOOD COUNT 2.61 M/mm3 (4.10-5.30); REDCELL DISTRIBUTION WIDTH-CV 14.6 % (11.5-14.5)
[2022-02-05 09:13] LABS: INR 1.8 (0.8-3.0); PROTHROMBIN TIME 21.3 SECONDS (9.7-12.8)
[2022-02-05 09:15] LABS: HEMOGLOBIN 8.9 g/dl (12.5-16.0); MEAN CORPUSCULAR HEMOGLOBIN 34 pg (27-31)
[2022-02-05 09:18] LABS: PLATELET COUNT 34 K/mm3 (130-400)
[2022-02-05 09:26] LABS: ALBUMIN 4.1 gm/dL (3.5-5.0); BILIRUBIN,TOTAL 3.8 mg/dL (0.2-1.2); CALCIUM 8.6 mg/dL (8.4-10.2); CREATININE, serum 1.75 mg/dL (0.57-1.11); POTASSIUM 5.3 mmol/L (3.5-4.5); TOTAL PROTEIN 5.8 gm/dL (6.2-8.1)
[2022-02-05 12:15] VITALS: BP 121/53; PULSE 82
--- NOTE | 2022-02-05 12:56 | NUR ---
Pt medicated with fentanyl for c/o abd pain following para procedure. Pt states she has had discomfort to area since last wk's para, and this was exacerbated after today's procedure. Dressing over puncture site remains clean, dry and intact. Dr Bustillo gave order for fentanyl as GI office had not returned call yet.
--- NOTE | 2022-02-05 14:50 | NUR ---
Pain better controlled following fentanyl. INT DC'd. Pt assisted out to 's car by wheelchair.
== END 2022-02-05 14:50 | disposition home or self-care (01) ==
LOC: COL.RAD 08:17
PROVIDERS: Student in an Organized Health Care Education/Training Program
DX: K70.31 Alcoholic cirrhosis of liver with ascites (principal)
CPT/HCPCS: J3010; P9047

== ENCOUNTER 2022-02-12 09:08 | Outpatient (CLI) | payer OTHER ==
[~2022-02-12] VITALS: Ht 157.5 cm; Wt 84.0 kg
[2022-02-12 09:31] VITALS: BP 118/71; PULSE 71; TEMP 98.3
[2022-02-12 09:38] LABS: BASO % 0.5 % (0.0-2.0); EOS # 0.1 K/mm3 (0.0-0.7); EOS % 3.4 % (0.0-4.0); GRAN # 2.9 K/mm3 (1.4-6.5); GRAN % 76.8 % (42.2-75.2); LYMPH # 0.3 K/mm3 (1.2-3.4); MEAN CELL VOLUME 101 fl (80.0-100.0); MEAN CORPUSCULAR HGB CONC 34 g/dl (33.0-37.0); MONO # 0.5 K/mm3 (0.1-0.6); RED BLOOD COUNT 2.69 M/mm3 (4.10-5.30); REDCELL DISTRIBUTION WIDTH-CV 14.5 % (11.5-14.5)
[2022-02-12 09:41] LABS: HEMATOCRIT 27.1 % (37.0-47.0); HEMOGLOBIN 9.1 g/dl (12.5-16.0); MEAN CORPUSCULAR HEMOGLOBIN 34 pg (27-31)
[2022-02-12 09:42] LABS: INR 1.9 (0.8-3.0); PROTHROMBIN TIME 21.9 SECONDS (9.7-12.8)
[2022-02-12 09:45] LABS: PLATELET COUNT 37 K/mm3 (130-400)
[2022-02-12 09:53] LABS: BILIRUBIN,TOTAL 4.2 mg/dL (0.2-1.2); CALCIUM 8.7 mg/dL (8.4-10.2); CREATININE, serum 1.62 mg/dL (0.57-1.11); POTASSIUM 5.2 mmol/L (3.5-4.5); TOTAL PROTEIN 5.8 gm/dL (6.2-8.1)
[2022-02-12 12:01] VITALS: BP 118/57; PULSE 86
--- NOTE | 2022-02-12 14:05 | NUR ---
Pt assisted out to friend's car by wheelchair with belongings.
== END 2022-02-12 14:05 | disposition home or self-care (01) ==
LOC: COL.RAD 09:08
PROVIDERS: Internal Medicine Gastroenterology
DX: K70.31 Alcoholic cirrhosis of liver with ascites (principal)
CPT/HCPCS: P9047

== ENCOUNTER → 2022-02-19 | Outpatient (CLI) | payer OTHER ==
[~2022-02-19] VITALS: Ht 157.5 cm; Wt 88.8 kg
[2022-02-19 09:09] VITALS: BP 135/77; PULSE 78; TEMP 98.1
[2022-02-19 09:27] LABS: ALBUMIN 4.1 gm/dL (3.5-5.0); BILIRUBIN,TOTAL 3.8 mg/dL (0.2-1.2); CALCIUM 8.7 mg/dL (8.4-10.2); CREATININE, serum 1.7 mg/dL (0.57-1.11); POTASSIUM 5.4 mmol/L (3.5-4.5); TOTAL PROTEIN 5.8 gm/dL (6.2-8.1)
[2022-02-19 09:34] LABS: INR 1.8 (0.8-3.0); PROTHROMBIN TIME 21.1 SECONDS (9.7-12.8)
[2022-02-19 09:42] LABS: BASO % 0.5 % (0.0-2.0); EOS # 0.2 K/mm3 (0.0-0.7); EOS % 4.6 % (0.0-4.0); GRAN % 75.4 % (42.2-75.2); LYMPH # 0.3 K/mm3 (1.2-3.4); LYMPH % 8.2 % (20.0-51.0); MEAN CELL VOLUME 101 fl (80.0-100.0); MEAN CORPUSCULAR HGB CONC 34 g/dl (33.0-37.0); MONO # 0.4 K/mm3 (0.1-0.6); RED BLOOD COUNT 2.66 M/mm3 (4.10-5.30); REDCELL DISTRIBUTION WIDTH-CV 14.6 % (11.5-14.5)
[2022-02-19 09:44] LABS: HEMATOCRIT 26.8 % (37.0-47.0); MEAN CORPUSCULAR HEMOGLOBIN 34 pg (27-31)
[2022-02-19 09:46] LABS: PLATELET COUNT 36 K/mm3 (130-400)
[2022-02-19 11:32] VITALS: BP 125/77; PULSE 78
[2022-02-19 12:08] LABS: PERITONEAL -POLYMORPHONUCLEAR 8.8 % (0-25)
== END ==
LOC: COL.RAD 08:39
PROVIDERS: Student in an Organized Health Care Education/Training Program
DX: K70.31 Alcoholic cirrhosis of liver with ascites (principal)
CPT/HCPCS: P9047

== ENCOUNTER 2022-02-26 08:43 | Outpatient (CLI) | payer OTHER ==
[~2022-02-26] VITALS: Ht 157.5 cm; Wt 88.8 kg
[2022-02-26] MEDS ORDERED: LASIX 40MG TABL40 MG PO (09:19)
[2022-02-26 09:34] VITALS: BP 140/85; PULSE 86; TEMP 98
[2022-02-26 09:40] LABS: MEAN CELL VOLUME 102 fl (80.0-100.0); MEAN CORPUSCULAR HGB CONC 33 g/dl (33.0-37.0); REDCELL DISTRIBUTION WIDTH-CV 15.5 % (11.5-14.5)
[2022-02-26 09:55] LABS: HEMATOCRIT 26.6 % (37.0-47.0); HEMOGLOBIN 8.7 g/dl (12.5-16.0); MEAN CORPUSCULAR HEMOGLOBIN 33 pg (27-31)
[2022-02-26 09:57] LABS: PLATELET COUNT 32 K/mm3 (130-400)
[2022-02-26 09:58] LABS: ALBUMIN 3.8 gm/dL (3.5-5.0); BILIRUBIN,TOTAL 3.5 mg/dL (0.2-1.2); CALCIUM 8.5 mg/dL (8.4-10.2); POTASSIUM 3.6 mmol/L (3.5-4.5); TOTAL PROTEIN 5.3 gm/dL (6.2-8.1)
[2022-02-26 11:46] LABS: ANISOCYTOSIS 2+; BAND 6 % (0-10); EOSINOPHIL 7 % (0-4); LYMPHOCYTE 9 % (20.0-51.0); NEUTROPHILS 72 % (42.0-75.2); PLATELET ESTIMATE DECREASED (NORMAL)
[2022-02-26 11:47] LABS: OVALOCYTES 1+; SCHISTOCYTES 1+
[2022-02-26 12:27] VITALS: BP 131/71; PULSE 109; TEMP 98.2
== END 2022-02-26 15:00 | disposition home or self-care (01) ==
LOC: COL.RAD 08:43
PROVIDERS: Internal Medicine Gastroenterology
DX: K70.31 Alcoholic cirrhosis of liver with ascites (principal)
CPT/HCPCS: P9047

== ENCOUNTER 2022-03-05 08:37 | Outpatient (CLI) | payer OTHER ==
[2022-03-05 09:43] LABS: BASO % 0.5 % (0.0-2.0); EOS # 0.2 K/mm3 (0.0-0.7); EOS % 4.4 % (0.0-4.0); GRAN # 2.8 K/mm3 (1.4-6.5); GRAN % 73.1 % (42.2-75.2); LYMPH # 0.3 K/mm3 (1.2-3.4); MEAN CELL VOLUME 100 fl (80.0-100.0); MEAN CORPUSCULAR HGB CONC 33 g/dl (33.0-37.0); MONO # 0.5 K/mm3 (0.1-0.6); MONO % 13.7 % (1.7-9.3); PLATELET COUNT 57 K/mm3 (130-400); RED BLOOD COUNT 2.81 M/mm3 (4.10-5.30); REDCELL DISTRIBUTION WIDTH-CV 15.9 % (11.5-14.5)
[2022-03-05 09:51] LABS: HEMATOCRIT 28.2 % (37.0-47.0); HEMOGLOBIN 9.4 g/dl (12.5-16.0); MEAN CORPUSCULAR HEMOGLOBIN 33 pg (27-31)
[2022-03-05 09:59] LABS: INR 1.9 (0.8-3.0); PROTHROMBIN TIME 21.9 SECONDS (9.7-12.8)
[2022-03-05 10:05] LABS: CREATININE, serum 1.84 mg/dL (0.57-1.11); POTASSIUM 4.8 mmol/L (3.5-4.5); TOTAL PROTEIN 5.7 gm/dL (6.2-8.1)
[2022-03-05 11:45] VITALS: BP 120/51; PULSE 97
[2022-03-05 14:00] VITALS: BP 117/60; PULSE 100
--- NOTE | 2022-03-05 14:15 | NUR ---
INFUSION COMPLETED, PT ATE PUDDING, BANDAID TO LEFT ABD IS DRY, IV D'CD INTACT. PT UP IN W/C ON OWN AND DISCHARGED AT 1435 TO CAR WITH
== END 2022-03-05 16:56 ==
LOC: COL.RAD 08:37
PROVIDERS: Student in an Organized Health Care Education/Training Program
DX: K70.31 Alcoholic cirrhosis of liver with ascites (principal); D69.6 Thrombocytopenia, unspecified
CPT/HCPCS: P9047

== ENCOUNTER 2022-03-12 08:57 | Outpatient (CLI) | payer OTHER ==
[2022-03-05 09:19] VITALS: BP 119/74; PULSE 74; TEMP 98.1
[~2022-03-12] VITALS: Ht 157.5 cm; Wt 88.7 kg
--- NOTE | 2022-03-12 07:51 | NUR ---
attempted several times 04/12/22 to get orders for para today. no orders this am. Spoke to Dr Schaeffer and he stated to let her know the situation. Patient called and a voice mail was left at this time. Pt informed that she could go to ER if we don't get an order if she fills full and needs the para.
[2022-03-12 09:14] VITALS: BP 113/68; PULSE 81; TEMP 97.9
--- NOTE | 2022-03-12 09:40 | NUR ---
dr [place]rench [place] [id number].
[2022-03-12 09:43] LABS: PROTHROMBIN TIME 22.6 SECONDS (9.7-12.8)
[2022-03-12 09:45] LABS: BASO % 0.5 % (0.0-2.0); EOS # 0.2 K/mm3 (0.0-0.7); EOS % 3.7 % (0.0-4.0); GRAN % 73.7 % (42.2-75.2); LYMPH # 0.3 K/mm3 (1.2-3.4); LYMPH % 7.1 % (20.0-51.0); MEAN CELL VOLUME 100 fl (80.0-100.0); MEAN CORPUSCULAR HGB CONC 34 g/dl (33.0-37.0); MONO # 0.6 K/mm3 (0.1-0.6); MONO % 14.5 % (1.7-9.3); RED BLOOD COUNT 2.54 M/mm3 (4.10-5.30); REDCELL DISTRIBUTION WIDTH-CV 16.1 % (11.5-14.5)
[2022-03-12 09:48] LABS: HEMATOCRIT 25.3 % (37.0-47.0); HEMOGLOBIN 8.7 g/dl (12.5-16.0); MEAN CORPUSCULAR HEMOGLOBIN 34 pg (27-31)
[2022-03-12 09:57] LABS: ALBUMIN 3.9 gm/dL (3.5-5.0); BILIRUBIN,TOTAL 4.6 mg/dL (0.2-1.2); CALCIUM 8.6 mg/dL (8.4-10.2); CREATININE, serum 2.13 mg/dL (0.57-1.11); POTASSIUM 4.5 mmol/L (3.5-4.5); TOTAL PROTEIN 5.4 gm/dL (6.2-8.1)
[2022-03-12 10:01] LABS: PLATELET COUNT 39 K/mm3 (130-400)
[2022-03-12 11:43] VITALS: BP 106/62; PULSE 77
--- NOTE | 2022-03-12 13:50 | NUR ---
Pt assisted out by wheelchair to 's car. IV DC'd, site wrapped with coban.
== END 2022-03-12 13:50 | disposition home or self-care (01) ==
LOC: COL.RAD 08:57
PROVIDERS: Student in an Organized Health Care Education/Training Program
DX: K70.31 Alcoholic cirrhosis of liver with ascites (principal)
CPT/HCPCS: P9047

== ENCOUNTER 2022-03-19 08:57 | Outpatient (CLI) | payer OTHER ==
[~2022-03-19] VITALS: Ht 157.5 cm; Wt 85.8 kg
[2022-03-19 13:40] VITALS: BP 132/78; PULSE 82; TEMP 98.2
[2022-03-19 14:03] LABS: PROTHROMBIN TIME 22.6 SECONDS (9.7-12.8)
[2022-03-19 14:11] LABS: ALBUMIN 3.8 gm/dL (3.5-5.0); BILIRUBIN,TOTAL 5.2 mg/dL (0.2-1.2); CALCIUM 8.4 mg/dL (8.4-10.2); CREATININE, serum 2.02 mg/dL (0.57-1.11); POTASSIUM 4.1 mmol/L (3.5-4.5); TOTAL PROTEIN 5.5 gm/dL (6.2-8.1)
[2022-03-19 14:17] LABS: BASO % 0.5 % (0.0-2.0); EOS # 0.1 K/mm3 (0.0-0.7); EOS % 2.9 % (0.0-4.0); GRAN # 2.9 K/mm3 (1.4-6.5); GRAN % 76.7 % (42.2-75.2); LYMPH # 0.3 K/mm3 (1.2-3.4); LYMPH % 6.5 % (20.0-51.0); MEAN CELL VOLUME 101 fl (80.0-100.0); MEAN CORPUSCULAR HGB CONC 33 g/dl (33.0-37.0); MONO # 0.5 K/mm3 (0.1-0.6); MONO % 13.1 % (1.7-9.3); PLATELET COUNT 54 K/mm3 (130-400); RED BLOOD COUNT 2.76 M/mm3 (4.10-5.30); REDCELL DISTRIBUTION WIDTH-CV 16.4 % (11.5-14.5)
[2022-03-19 14:18] LABS: HEMATOCRIT 27.9 % (37.0-47.0); HEMOGLOBIN 9.3 g/dl (12.5-16.0); MEAN CORPUSCULAR HEMOGLOBIN 34 pg (27-31)
[2022-03-19 15:44] VITALS: BP 121/72; PULSE 80
[2022-03-19 16:07] LABS: PERITONEAL -POLYMORPHONUCLEAR 6.4 % (0-25)
== END 2022-03-19 19:00 ==
LOC: COL.RAD 08:57
PROVIDERS: Student in an Organized Health Care Education/Training Program
DX: K70.31 Alcoholic cirrhosis of liver with ascites (principal); K72.90 Hepatic failure, unspecified without coma
CPT/HCPCS: P9047

== ENCOUNTER 2022-03-26 13:18 | Outpatient (CLI) | payer OTHER ==
[~2022-03-26] VITALS: Ht 157.5 cm; Wt 88.7 kg
[2022-03-26] MEDS ORDERED: NEURONTIN100 MG/CAP PO (13:41)
[2022-03-26] MEDS ORDERED: METAMUCIL SUGA283 GM PO (13:44)
[2022-03-26 13:47] VITALS: BP 115/71; PULSE 67; TEMP 98.1
[2022-03-26 13:52] LABS: MEAN CELL VOLUME 101 fl (80.0-100.0); MEAN CORPUSCULAR HGB CONC 33 g/dl (33.0-37.0); RED BLOOD COUNT 2.69 M/mm3 (4.10-5.30)
[2022-03-26 13:55] LABS: INR 1.9 (0.8-3.0); PROTHROMBIN TIME 21.8 SECONDS (9.7-12.8)
[2022-03-26 13:57] LABS: HEMATOCRIT 27.1 % (37.0-47.0); MEAN CORPUSCULAR HEMOGLOBIN 33 pg (27-31)
[2022-03-26 13:58] LABS: PLATELET COUNT 35 K/mm3 (130-400)
[2022-03-26 14:07] LABS: ALBUMIN 3.9 gm/dL (3.5-5.0); BILIRUBIN,TOTAL 4.2 mg/dL (0.2-1.2); CALCIUM 8.7 mg/dL (8.4-10.2); CREATININE, serum 2.01 mg/dL (0.57-1.11); POTASSIUM 4.4 mmol/L (3.5-4.5); TOTAL PROTEIN 5.4 gm/dL (6.2-8.1)
[2022-03-26 15:09] VITALS: BP 136/78; PULSE 78
[2022-03-26 17:50] VITALS: BP 118/59; PULSE 82
== END 2022-03-26 19:21 | disposition home or self-care (01) ==
LOC: COL.RAD 13:18
PROVIDERS: Internal Medicine Gastroenterology
DX: R18.8 Other ascites (principal)
CPT/HCPCS: P9047

== ENCOUNTER 2022-04-02 13:04 | Outpatient (CLI) | payer OTHER ==
[~2022-04-02] VITALS: Ht 157.5 cm; Wt 85.5 kg
[~2022-04-02 13:04] MED LIST changes: +METAMUCIL SUGA283 GM PO; +NEURONTIN100 MG/CAP PO
[2022-04-02 13:47] VITALS: BP 119/71; PULSE 69; TEMP 98.4
[2022-04-02] MEDS ORDERED: ENULOSE10 GM/151 PO (13:47)
[2022-04-02 13:57] LABS: MEAN CELL VOLUME 102 fl (80.0-100.0); MEAN CORPUSCULAR HGB CONC 34 g/dl (33.0-37.0); MEAN PLATELET VOLUME 11.8 fl (7.4-10.4); RED BLOOD COUNT 2.59 M/mm3 (4.10-5.30); REDCELL DISTRIBUTION WIDTH-CV 16.3 % (11.5-14.5)
[2022-04-02 13:58] LABS: HEMATOCRIT 26.5 % (37.0-47.0); HEMOGLOBIN 8.9 g/dl (12.5-16.0); MEAN CORPUSCULAR HEMOGLOBIN 34 pg (27-31)
[2022-04-02 14:00] LABS: PLATELET COUNT 37 K/mm3 (130-400)
[2022-04-02 14:02] LABS: INR 1.9 (0.8-3.0); PROTHROMBIN TIME 22.1 SECONDS (9.7-12.8)
[2022-04-02 14:12] LABS: ALBUMIN 3.8 gm/dL (3.5-5.0); BILIRUBIN,TOTAL 4.2 mg/dL (0.2-1.2); CALCIUM 8.7 mg/dL (8.4-10.2); CREATININE, serum 1.86 mg/dL (0.57-1.11); POTASSIUM 4.6 mmol/L (3.5-4.5); TOTAL PROTEIN 5.1 gm/dL (6.2-8.1)
[2022-04-02 15:01] LABS: BAND 3 % (0-10); EOSINOPHIL 4 % (0-4); LYMPHOCYTE 11 % (20.0-51.0); NEUTROPHILS 75 % (42.0-75.2); PLATELET ESTIMATE DECREASED (NORMAL)
[2022-04-02 15:02] LABS: ANISOCYTOSIS 1+; SCHISTOCYTES 1+
[2022-04-02 15:50] VITALS: BP 120/48; PULSE 69
--- NOTE | 2022-04-02 18:27 | NUR ---
Pt was escorted to exit via wheelchair after albumin infusion. Pt slept during much of her infusion today, but toward the end of infusion, pt did sit up and eat the dinner she brought, and after infusion was steady on her feet when transferring several steps to wheelchair, into and out of bathroom and into her vehicle. pt gcs 15 at her departure.
== END 2022-04-02 18:29 | disposition home or self-care (01) ==
LOC: COL.RAD 13:04
PROVIDERS: Internal Medicine Gastroenterology
DX: K70.31 Alcoholic cirrhosis of liver with ascites (principal); K92.0 Hematemesis; K72.90 Hepatic failure, unspecified without coma
CPT/HCPCS: P9047

== ENCOUNTER 2022-04-09 13:08 | Outpatient (CLI) | payer OTHER ==
[~2022-04-09] VITALS: Ht 157.5 cm; Wt 85.1 kg
[~2022-04-09 13:08] MED LIST changes: +ENULOSE10 GM/151 PO
[2022-04-09] MEDS ORDERED: AMINO ACIDS PO (13:31)
[2022-04-09] MEDS ORDERED: PHARMASSURE ZIN50 MG PO (13:32)
[2022-04-09 13:33] VITALS: BP 133/80; PULSE 81; TEMP 98.3
[2022-04-09 13:41] LABS: BASO % 0.7 % (0.0-2.0); EOS # 0.2 K/mm3 (0.0-0.7); EOS % 5.4 % (0.0-4.0); GRAN # 2.9 K/mm3 (1.4-6.5); GRAN % 72.6 % (42.2-75.2); LYMPH # 0.3 K/mm3 (1.2-3.4); LYMPH % 7.7 % (20.0-51.0); MEAN CELL VOLUME 100 fl (80.0-100.0); MEAN CORPUSCULAR HGB CONC 34 g/dl (33.0-37.0); MONO # 0.5 K/mm3 (0.1-0.6); MONO % 13.4 % (1.7-9.3); RED BLOOD COUNT 2.65 M/mm3 (4.10-5.30); REDCELL DISTRIBUTION WIDTH-CV 15.9 % (11.5-14.5)
[2022-04-09 13:43] LABS: INR 1.9 (0.8-3.0); PROTHROMBIN TIME 22.3 SECONDS (9.7-12.8)
[2022-04-09 13:46] LABS: HEMATOCRIT 26.5 % (37.0-47.0); MEAN CORPUSCULAR HEMOGLOBIN 34 pg (27-31)
[2022-04-09 13:49] LABS: PLATELET COUNT 37 K/mm3 (130-400)
[2022-04-09 13:55] LABS: ALBUMIN 4.1 gm/dL (3.5-5.0); BILIRUBIN,TOTAL 5.4 mg/dL (0.2-1.2); CALCIUM 8.9 mg/dL (8.4-10.2); CREATININE, serum 1.81 mg/dL (0.57-1.11); POTASSIUM 3.9 mmol/L (3.5-4.5); TOTAL PROTEIN 5.6 gm/dL (6.2-8.1)
[2022-04-09 15:44] VITALS: BP 129/64; PULSE 76
== END 2022-04-09 17:45 | disposition home or self-care (01) ==
LOC: COL.RAD 13:08
PROVIDERS: Internal Medicine Gastroenterology
DX: K70.31 Alcoholic cirrhosis of liver with ascites (principal); K72.90 Hepatic failure, unspecified without coma; K92.0 Hematemesis
CPT/HCPCS: P9047

== ENCOUNTER 2022-04-16 08:48 | Outpatient (CLI) | payer OTHER ==
[~2022-04-16] VITALS: Ht 157.5 cm; Wt 87.2 kg
[~2022-04-16 08:48] MED LIST changes: +AMINO ACIDS PO; +PHARMASSURE ZIN50 MG PO
[2022-04-16] MEDS ORDERED: IRON TABLETS325 MG PO (09:17)
[2022-04-16 09:19] VITALS: BP 116/73; PULSE 78; TEMP 98
[2022-04-16 09:29] LABS: MEAN CELL VOLUME 104 fl (80.0-100.0); MEAN CORPUSCULAR HGB CONC 33 g/dl (33.0-37.0); RED BLOOD COUNT 2.59 M/mm3 (4.10-5.30); REDCELL DISTRIBUTION WIDTH-CV 15.9 % (11.5-14.5)
[2022-04-16 09:30] LABS: HEMATOCRIT 26.8 % (37.0-47.0); HEMOGLOBIN 8.8 g/dl (12.5-16.0); MEAN CORPUSCULAR HEMOGLOBIN 34 pg (27-31)
[2022-04-16 09:33] LABS: PLATELET COUNT 35 K/mm3 (130-400)
[2022-04-16 09:34] LABS: PROTHROMBIN TIME 23.2 SECONDS (9.7-12.8)
[2022-04-16 09:43] LABS: ALBUMIN 3.9 gm/dL (3.5-5.0); BILIRUBIN,TOTAL 5.1 mg/dL (0.2-1.2); CALCIUM 8.6 mg/dL (8.4-10.2); CREATININE, serum 1.81 mg/dL (0.57-1.11); POTASSIUM 3.9 mmol/L (3.5-4.5); TOTAL PROTEIN 5.2 gm/dL (6.2-8.1)
[2022-04-16 10:06] LABS: BAND 5 % (0-10); EOSINOPHIL 12 % (0-4); HYPOCHROMIA 1+; LYMPHOCYTE 10 % (20.0-51.0); NEUTROPHILS 66 % (42.0-75.2)
[2022-04-16 10:07] LABS: PLATELET ESTIMATE DECREASED (NORMAL)
[2022-04-16 11:10] VITALS: BP 118/57; PULSE 81
[2022-04-16 12:15] LABS: PERITONEAL -POLYMORPHONUCLEAR 4.9 % (0-25)
--- NOTE | 2022-04-16 13:50 | NUR ---
Pt assisted to restroom and then to 's car by wheelchair with belongings. IV site wrapped with coban.
== END 2022-04-16 13:50 | disposition home or self-care (01) ==
LOC: COL.RAD 08:48
PROVIDERS: Internal Medicine Gastroenterology; Student in an Organized Health Care Education/Training Program
DX: K70.31 Alcoholic cirrhosis of liver with ascites (principal); K92.0 Hematemesis; K72.90 Hepatic failure, unspecified without coma
CPT/HCPCS: P9047

== ENCOUNTER 2022-04-21 13:20 | Emergency (ER) | payer OTHER ==
[~2022-04-21] VITALS: Ht 157.5 cm; Wt 84.1 kg
[~2022-04-21 13:20] MED LIST changes: +IRON TABLETS325 MG PO
[2022-04-21 14:22] VITALS: TEMP 98.5
[2022-04-21 16:09] VITALS: BP 137/77; PULSE 87
== END 2022-04-21 16:09 | disposition home or self-care (01) ==
LOC: COL.ER 13:20
DX: Z48.01 Encounter for change or removal of surgical wound dressing (principal); Z28.310 Unvaccinated for COVID-19

== ENCOUNTER 2022-04-23 08:21 | Outpatient (CLI) | payer OTHER ==
[~2022-04-23] VITALS: Ht 157.5 cm; Wt 98.1 kg
[2022-04-23 09:28] LABS: BASO % 0.6 % (0.0-2.0); EOS # 0.2 K/mm3 (0.0-0.7); EOS % 6.9 % (0.0-4.0); GRAN # 2.3 K/mm3 (1.4-6.5); GRAN % 67.6 % (42.2-75.2); LYMPH # 0.3 K/mm3 (1.2-3.4); LYMPH % 9.3 % (20.0-51.0); MEAN CELL VOLUME 100 fl (80.0-100.0); MEAN CORPUSCULAR HGB CONC 34 g/dl (33.0-37.0); MONO # 0.5 K/mm3 (0.1-0.6); MONO % 15.3 % (1.7-9.3); RED BLOOD COUNT 2.51 M/mm3 (4.10-5.30); REDCELL DISTRIBUTION WIDTH-CV 15.6 % (11.5-14.5)
[2022-04-23 09:30] LABS: HEMATOCRIT 25.1 % (37.0-47.0); HEMOGLOBIN 8.6 g/dl (12.5-16.0); MEAN CORPUSCULAR HEMOGLOBIN 34 pg (27-31)
[2022-04-23 09:32] LABS: PLATELET COUNT 33 K/mm3 (130-400)
[2022-04-23 09:36] LABS: PROTHROMBIN TIME 22.8 SECONDS (9.7-12.8)
[2022-04-23 09:46] LABS: BILIRUBIN,TOTAL 5.3 mg/dL (0.2-1.2); CALCIUM 8.8 mg/dL (8.4-10.2); CREATININE, serum 1.87 mg/dL (0.57-1.11); POTASSIUM 4.6 mmol/L (3.5-4.5); TOTAL PROTEIN 5.3 gm/dL (6.2-8.1)
--- NOTE | 2022-04-23 09:57 | NUR ---
DR BEEBE IS AWARE THAT PATIENTS PLT IS 33.
[2022-04-23 11:15] VITALS: BP 119/62; PULSE 68; TEMP 98
== END 2022-04-23 13:57 ==
LOC: COL.RAD 08:21
PROVIDERS: Internal Medicine Gastroenterology
DX: K70.31 Alcoholic cirrhosis of liver with ascites (principal)
CPT/HCPCS: P9047

== ENCOUNTER 2022-04-30 08:23 | Outpatient (CLI) | payer OTHER ==
[~2022-04-30] VITALS: Ht 157.5 cm; Wt 89.3 kg
[2022-04-30 09:01] VITALS: BP 115/72; PULSE 79; TEMP 97.8
[2022-04-30 09:11] LABS: INR 1.8 (0.8-3.0); PROTHROMBIN TIME 21.1 SECONDS (9.7-12.8)
[2022-04-30 09:19] LABS: BASO % 0.6 % (0.0-2.0); EOS # 0.3 K/mm3 (0.0-0.7); GRAN # 2.4 K/mm3 (1.4-6.5); GRAN % 70.3 % (42.2-75.2); LYMPH # 0.3 K/mm3 (1.2-3.4); LYMPH % 8.9 % (20.0-51.0); MEAN CELL VOLUME 101 fl (80.0-100.0); MEAN CORPUSCULAR HGB CONC 34 g/dl (33.0-37.0); MONO # 0.4 K/mm3 (0.1-0.6); MONO % 11.9 % (1.7-9.3); RED BLOOD COUNT 2.64 M/mm3 (4.10-5.30); REDCELL DISTRIBUTION WIDTH-CV 15.9 % (11.5-14.5)
[2022-04-30 09:27] LABS: ALBUMIN 4.1 gm/dL (3.5-5.0); BILIRUBIN,TOTAL 4.3 mg/dL (0.2-1.2); CALCIUM 8.7 mg/dL (8.4-10.2); CREATININE, serum 2.09 mg/dL (0.57-1.11); POTASSIUM 4.1 mmol/L (3.5-4.5); TOTAL PROTEIN 5.6 gm/dL (6.2-8.1)
[2022-04-30 09:29] LABS: HEMATOCRIT 26.7 % (37.0-47.0); MEAN CORPUSCULAR HEMOGLOBIN 34 pg (27-31)
[2022-04-30 09:31] LABS: PLATELET COUNT 38 K/mm3 (130-400)
[2022-04-30 11:00] VITALS: BP 116/61; PULSE 74
== END 2022-04-30 18:00 ==
LOC: COL.RAD 08:23
PROVIDERS: Student in an Organized Health Care Education/Training Program
DX: K70.31 Alcoholic cirrhosis of liver with ascites (principal)
CPT/HCPCS: P9047

== ENCOUNTER 2022-05-07 08:36 | Outpatient (CLI) | payer OTHER ==
[~2022-05-07] VITALS: Ht 157.5 cm; Wt 89.4 kg
[2022-05-07 08:58] VITALS: BP 120/67; PULSE 82; TEMP 97.9
[2022-05-07 09:17] LABS: MEAN CELL VOLUME 99 fl (80.0-100.0); MEAN CORPUSCULAR HGB CONC 34 g/dl (33.0-37.0); RED BLOOD COUNT 2.39 M/mm3 (4.10-5.30); REDCELL DISTRIBUTION WIDTH-CV 15.4 % (11.5-14.5)
[2022-05-07 09:23] LABS: HEMATOCRIT 23.7 % (37.0-47.0); HEMOGLOBIN 8.1 g/dl (12.5-16.0); MEAN CORPUSCULAR HEMOGLOBIN 34 pg (27-31)
[2022-05-07 09:25] LABS: PLATELET COUNT 30 K/mm3 (130-400)
[2022-05-07 09:27] LABS: INR 2.1 (0.8-3.0); PROTHROMBIN TIME 23.8 SECONDS (9.7-12.8)
[2022-05-07 09:43] LABS: ALBUMIN 3.8 gm/dL (3.5-5.0); CALCIUM 8.4 mg/dL (8.4-10.2); CREATININE, serum 2.03 mg/dL (0.57-1.11); POTASSIUM 4.2 mmol/L (3.5-4.5)
[2022-05-07 09:58] LABS: BAND 8 % (0-10); EOSINOPHIL 5 % (0-4); LYMPHOCYTE 16 % (20.0-51.0); NEUTROPHILS 61 % (42.0-75.2); PLATELET ESTIMATE DECREASED (NORMAL)
[2022-05-07 09:59] LABS: ANISOCYTOSIS 1+
[2022-05-07 11:26] VITALS: BP 131/62; PULSE 75
--- NOTE | 2022-05-07 14:25 | NUR ---
Pt assisted out by wheelchair to 's car. IV site wrapped with coban. Gait steady when transferring from bed to wheelchair.
== END 2022-05-07 14:27 | disposition home or self-care (01) ==
LOC: COL.RAD 08:36
PROVIDERS: Internal Medicine
DX: R18.8 Other ascites (principal)
CPT/HCPCS: P9047